=== PATIENT | male | born 1985 | race Caucasian/White ===

== ENCOUNTER 2025-02-05 20:11 | Emergency (ER) | payer BC ==
[~2025-02-05] VITALS: Ht 170.2 cm; Wt 74.8 kg
[2025-02-05 20:43] VITALS: TEMP 98.5
[2025-02-05 21:03] LABS: PLATELET COUNT (AUTO) 320 K/uL (150-450); RED BLOOD CELL COUNT(AUTO) 4.37 MIL/uL (4.5-6.0); RED CELL DISTRIBUTION WIDTH 13.0 % (11.5-15.0); WHITE BLOOD COUNT (AUTO) 7.1 K/uL (4.3-11.0)
[2025-02-05 21:14] LABS: CALCIUM, SERUM 9.0 mg/dL (8.5-10.1); CREATININE 0.8 mg/dL (0.6-1.3); SODIUM SERUM 138.0 mmol/L (136-145); UREA NITROGEN, BLOOD 12.0 mg/dL (7-18)
[2025-02-05 21:17] LABS: INR 1.02 (0.91-1.10)
[2025-02-05 21:19] LABS: ASPARTATE AMINOTRANSFERASE 19.0 U/L (15-37); TOTAL PROTEIN, SERUM 8.0 g/dL (6.4-8.2)
[2025-02-05 21:46] VITALS: BP 125/80; O2SAT 99
== END 2025-02-05 21:45 | disposition home or self-care (01) ==
LOC: ER 20:15
DX: L03.116 Cellulitis of left lower limb (principal); M10.9 Gout, unspecified; R22.42 Localized swelling, mass and lump, left lower limb; M79.605 Pain in left leg; Z86.59 Personal history of other mental and behavioral disorders
CPT/HCPCS: 36415; 80053-TC; 85025-TC; 85730-TC; 93971-TC